=== PATIENT | female | born 1955 ===

== ENCOUNTER 2021-12-19 09:00 | Inpatient (IN) | payer OTHER ==
[~2021-12-19] VITALS: Ht 149.9 cm; Wt 54.4 kg
[2021-12-19] MEDS ORDERED: METFORMIN HCL500 M3 PO (13:33)
[2021-12-19] MEDS ORDERED: LIPITOR20 MG PO (13:33)
[2021-12-19] MEDS ORDERED: LEVOTHYROXINE25 MCG PO (13:33)
[2021-12-19] MEDS ORDERED: LANTUS SOL100 UNIT/1 (13:33)
[2021-12-19] MEDS ORDERED: CLONAZEPAM0.5 MG PO (13:34)
[2021-12-19] MEDS ORDERED: COZAAR25 MG PO (13:34)
[2021-12-19] MEDS ORDERED: PROZAC20 MG PO (13:34)
[2021-12-19] MEDS ORDERED: TRULICITY0.75 MG/0. (13:35)
[2021-12-19] MEDS ORDERED: RESTORIL7.5 MG PO (13:35)
[2021-12-22] MEDS ORDERED: TIZANIDINE HCL4 MG (13:50)
[2021-12-22] MEDS ORDERED: ENBREL50 MG/1 M1 (13:50)
[2021-12-22] MEDS ORDERED: FENOFIBRIC ACI135 MG (13:50)
[2021-12-22] MEDS ORDERED: DULOXETINE HCL20 MG (13:50)
[2021-12-22] MEDS ORDERED: GABAPENTIN800 M1 (13:50)
[2021-12-22] MEDS ORDERED: TRULICITY1.5 MG/0.5 (13:50)
[2021-12-22] MEDS ORDERED: FLUMAZENIL0.1 MG/1 M (13:51)
[2021-12-22] MEDS ORDERED: FAMOTIDINE20 MG (13:51)
== END 2022-01-11 14:54 | disposition home or self-care (01) | DRG 330 ==
LOC: SURH 12-22 05:33 → O/R 12-22 05:33 → SURG 12-22 07:00 → SURH 12-22 14:43
PROVIDERS: ADMIT Colon & Rectal Surgery; ATTEND Colon & Rectal Surgery
PROC: 0DBB4ZZ Excision of Ileum, Percutaneous Endoscopic Approach (ICD-10-PCS; 2021-12-22)
PROC: 07BB4ZZ Excision of Mesenteric Lymphatic, Percutaneous Endoscopic Approach (ICD-10-PCS; 2021-12-22)
PROC: 0DN84ZZ Release Small Intestine, Percutaneous Endoscopic Approach (ICD-10-PCS; 2021-12-22)
PROC: 0DTK4ZZ Resection of Ascending Colon, Percutaneous Endoscopic Approach (ICD-10-PCS; principal; 2021-12-22 07:00)
PROC: BW21ZZZ Computerized Tomography (CT Scan) of Abdomen and Pelvis (ICD-10-PCS; 2021-12-27)
PROC: B246ZZZ Ultrasonography of Right and Left Heart (ICD-10-PCS; 2021-12-28)
PROC: 4A12X4Z Monitoring of Cardiac Electrical Activity, External Approach (ICD-10-PCS; 2021-12-28)
PROC: 30233N1 Transfusion of Nonautologous Red Blood Cells into Peripheral Vein, Percutaneous Approach (ICD-10-PCS; 2022-01-02)
PROC: BB24Y0Z Computerized Tomography (CT Scan) of Bilateral Lungs using Other Contrast, Unenhanced and Enhanced (ICD-10-PCS; 2022-01-03)
PROC: BW21ZZZ Computerized Tomography (CT Scan) of Abdomen and Pelvis (ICD-10-PCS; 2022-01-03)
PROC: B54NZZZ Ultrasonography of Left Upper Extremity Veins (ICD-10-PCS; 2022-01-09)
PROC: 02HV33Z Insertion of Infusion Device into Superior Vena Cava, Percutaneous Approach (ICD-10-PCS; 2022-01-10)
DX: C18.2 Malignant neoplasm of ascending colon (principal); K56.51 Intestinal adhesions [bands], with partial obstruction; Z20.822 Contact with and (suspected) exposure to COVID-19

== ENCOUNTER 2021-12-20 06:22 | Day surgery (SDC) | payer OTHER ==
[~2021-12-20 06:22] MED LIST: CLONAZEPAM0.5 MG PO; COZAAR25 MG PO; LANTUS SOL100 UNIT/1; LEVOTHYROXINE25 MCG PO; LIPITOR20 MG PO; METFORMIN HCL500 M3 PO; PROZAC20 MG PO; RESTORIL7.5 MG PO; TRULICITY0.75 MG/0.
== END 2021-12-20 14:00 | disposition home or self-care (01) ==
LOC: AMB-ENDOS 06:22
PROVIDERS: ATTEND Colon & Rectal Surgery
DX: D12.3 Benign neoplasm of transverse colon (principal); Z20.822 Contact with and (suspected) exposure to COVID-19; K57.30 Diverticulosis of large intestine without perforation or abscess without bleeding; I10 Essential (primary) hypertension; E03.9 Hypothyroidism, unspecified; Z95.0 Presence of cardiac pacemaker; Z85.038 Personal history of other malignant neoplasm of large intestine